=== PATIENT | male | born 1945 | race Caucasian/White ===

== ENCOUNTER 2016-09-07 12:42 | Emergency (ER) | payer MEDICARE ==
--- NOTE | ~2016-09-07 | EKG ---
PATIENT: MUKUL MONIQUE UNIT #: [id number] Ventricular Rate: 97 BPM Atrial Rate: 97 BPM P-R Interval: 126 ms QRS Duration: 86 ms Q-T Interval: 378 ms QTC Calculation(Bezet): 480 ms P [place]: 53 degrees Calculated R [place]: -19 degrees Calculated T [place]: -5 degrees Diagnosis Line: Sinus rhythm with occasional Premature ventricular Diagnosis Line: complexes Diagnosis Line: Possible Left atrial enlargement Diagnosis Line: Prolonged QT Diagnosis Line: Abnormal ECG Diagnosis Line: When compared with ECG of 20-DEC-2011 19:27, Diagnosis Line: Premature ventricular complexes are now Present Diagnosis Line: Confirmed by JALEESA YANG MD ([id number]) on Diagnosis Line: 09/14/2016 5:08:48 PM INTERPRETING MD: ESAU
--- NOTE | ~2016-09-07 | CR72 ---
[facility] A Service of [facility] RADIOLOGY TEXT RESULTS PATIENT: MUKUL MONIQUE LOCATION: SED : 45 UNIT #: [id number] AGE: [address]: Wero Ott MD SEX: M ORDER DR: [id number] [place] [id number] E MR#: [id number] Acc #: [id number] NAME: MUKUL MONIQUE : 1945 SEX: M STUDY DATE/TIME: 09/07/2016 UNIT: SED ROOM: STUDY DESCRIPTION: CR Chest Single View Portable Attending Physician: Wero Ott M.D. Ordering Physician: Wero Ott M.D. Primary Care Physician: Bakari Williamson M.D. MEDICAL IMAGING REPORT This report is preliminary unless electronic signature is present. EXAM Chest portable 09/07/2016 1302 hours HISTORY 71-year-old man complaining of chest pain this morning. History of previous right lung cancer and hypertension. COMPARISON 10/18/2014. FINDINGS Single portable upright view of the chest demonstrates normal heart size with mildly tortuous aorta. Lungs are well expanded. There is hazy left perihilar and infrahilar density without obscuration of the left heart border and left hemidiaphragm. There is no pleural fluid seen. IMPRESSION Hazy density along the left heart border and left lung base, new from prior study, without obscuration of the heart border or hemidiaphragm. This could represent area postop change or atelectasis. Underlying pneumonia cannot be excluded. Consider followup two-view film to reassess the left lung base. Dictated by... Liliana Anderson M.D. THIS IS AN ELECTRONICALLY VERIFIED REPORT Liliana Anderson M.D. at 09/08/2016 9:48 AM Audie TD: 09/07/2016 23:15 [facility] A Service of [facility] RADIOLOGY TEXT RESULTS PATIENT: MUKUL MONIQUE LOCATION: [facility] [place] : [birth year] UNIT #: [id number] AGE: [address]: Wero Ott MD SEX: M ORDER DR: AJ #: [id number] MEDICAL IMAGING REPORT Page 1 of 1
[~2016-09-07 12:42] MED LIST: ATENOLOL PO; BENZONATATE PO; COLESTID PO; LEVAQUIN PO; LODINE PO; METFORMIN HCL500 M3 PO; MUCINEX PO; OMEPRAZOLE20 M2 PO; TERAZOSIN HCL2 MG PO; ZESTRIL40 MG PO
[2016-09-07 13:08] LABS: BASOPHIL% 0.6 % (0-2.5); EOSINOPHIL# 0.1 X10e3 (0-0.7); EOSINOPHIL% 0.9 % (0.0-7.0); HEMATOCRIT 44.2 % (38.0-50.0); HEMOGLOBIN 14.9 gm/dL (13.0-16.0); LYMPHOCYTE# 1.6 X10e3 (1.0-3.5); LYMPHOCYTE% 22.3 % (17.0-45.0); MEAN CELL VOLUME 89.1 FL (83-96); MEAN CORPUSCULAR HGB CONC 33.7 g/dL (30-36); MEAN PLATELET VOLUME 8.1 FL (6.5-11.5); MONOCYTE# 0.4 X10e3 (0-1.0); NEUTROPHIL# 5.1 X10e3 (1.5-7.1); NEUTROPHIL% 70.2 % (40-75); PLATELET COUNT 291 X10e3 (140-420); RED BLOOD COUNT 4.96 X10e (3.90-5.60); RED CELL DISTRIBUTION WIDTH 14.8 % (11.0-15.5); WHITE BLOOD COUNT 7.2 X10e3 (4.0-10.5)
[2016-09-07 13:21] LABS: POC - CKMB 2.6 ng/mL (0.0-7.9); POC - TROPONIN <0.05 ng/mL (<=0.05)
[2016-09-07 13:28] LABS: DIFF IND NO
[2016-09-07 13:51] LABS: ALBUMIN SERUM 3.9 g/dL (3.5-5.0); BILIRUBIN, DIRECT 0.3 mg/dL (0.0-0.2); BILIRUBIN,INDIRECT 0.5 mg/dL (0.0-0.9); BILIRUBIN,TOTAL 0.8 mg/dL (0.2-2.0); BUN/CREATININE RATIO 16.25; CALCIUM SERUM 9.3 mg/dL (8.4-10.2); CREATININE SERUM 0.8 mg/dL (0.6-1.4); GLOM FILT RATE Estimated 89.9 mL/min (>60); POTASSIUM 4.1 mmol/L (3.5-5.1); PROTEIN TOTAL SERUM 7.6 g/dL (6.0-8.3)
== END 2016-09-07 14:47 | disposition home or self-care (01) ==
LOC: SED 12:42
PROVIDERS: Emergency Medicine
DX: J18.9 Pneumonia, unspecified organism (principal); M54.9 Dorsalgia, unspecified; F17.210 Nicotine dependence, cigarettes, uncomplicated; Z79.899 Other long term (current) drug therapy
CPT/HCPCS: 36415; 71010; 80048; 80076; 82553; 84484; 85025; 93005; 99285